=== PATIENT | male | born 1970 | race Caucasian/White ===

== ENCOUNTER → 2020-03-17 07:20 | Outpatient (CLI) | payer BC, SELFPAY ==
[2019-10-19 10:22] VITALS: BMI 40.8
--- NOTE | 2020-03-17 07:21 | ECHOCS_ITS ---
Reason For Study: HTN Procedure This was a 2D Doppler, Color Flow transthoracic echocardiogram. The study was technically difficult. Contrast injection was performed. Exam performed in department. Left Ventricle Mild concentric left ventricular hypertrophy. Mildly dilated left ventricle. The estimated ejection fraction is 65 %. Stage 1 diastolic dysfunction. No regional wall motion abnormalities noted. Right Ventricle Normal size and thickness. Normal systolic function. Atria Normal left atrium. Normal right atrium. Normal atrial septum. Mitral Valve The mitral valve is structurally normal. No prolapse or stenosis seen. Trivial eccentric mitral valve insufficiency. Tricuspid Valve Normal tricuspid valve. Unable to estimate RV systolic pressure due to insufficient tricuspid regurgitant envelope. Aortic Valve Trisinus/trileaflet aortic valve. Pulmonic Valve Normal pulmonic valve. Great Vessels Normal aortic root. Normal arch. Normal inferior vena cava. Inferior vena cava collapse with sniff. Pericardium/Pleural No pericardial effusion. Medication 22 gauge I.V. with prn adaptor inserted into right arm. Diluted definity 3ml given slow IV push to enhance endocardial definition. MMode/2D Measurements & Calculations LVIDd: 5.1 cm IVSd: 1.4 cm LA dimension: 4.8 cm LVIDs: 3.2 cm LVPWd: 1.4 cm FS: 36.0 % LAV(MOD-bp): 71.8 ml LA A4 area: 22.9 cm2 RA A4 area: 15.6 cm2 LAV(MOD-bp) Indexed: 31.0 ml/m2 LAV(MOD-sp2): 67.6 ml LAV(MOD-sp4): 76.8 ml Time Measurements MV dec time: 0.24 sec Doppler Measurements & Calculations MV E max nathan: 100.2 cm/sec Lat Peak E' Nathan: 9.7 cm/sec Med Peak E' Nathan: 7.7 cm/sec MV A max nathan: 83.0 cm/sec E/E' lat: 10.3 E/E' med: 13.0 MV E/A: 1.2 MV V2 max: 106.9 cm/sec MV P1/2t max nathan: 106.9 cm/sec Ao V2 max: 133.8 cm/sec MV max P.6 mmHg MV P1/2t: 123.1 msec Ao max P.2 mmHg MV V2 mean: 61.1 cm/sec MV dec slope: 254.2 cm/sec2 Ao V2 mean: 91.4 cm/sec MV mean P.7 mmHg Ao mean P.7 mmHg MV V2 VTI: 37.1 cm MVA(P1/2t): 1.8 cm2 Ao V2 VTI: 27.0 cm LV V1 max: 123.2 cm/sec MR max nathan: 520.3 cm/sec PA V2 max: 112.7 cm/sec LV V1 max P.1 mmHg MR max P.3 mmHg LV V1 mean P.1 mmHg MR mean nathan: 453.9 cm/sec LV V1 mean: 83.3 cm/sec MR mean P.3 mmHg LV V1 VTI: 25.8 cm MR VTI: 201.8 cm Interpretation Summary The estimated ejection fraction is 65 %. Stage 1 diastolic dysfunction. Mild concentric left ventricular hypertrophy. Mildly dilated left ventricle. Trivial eccentric mitral valve insufficiency. Unable to estimate RV systolic pressure due to insufficient tricuspid regurgitant envelope. The study was technically difficult. Contrast injection was performed. There is no comparison study available. Ordering Physician: Gamal Hnasen Referring Physician: MD Aram Harden Performed By: Timi Hanna RCS
[2020-03-17 08:32] LABS: AST(SGOT) 38 U/L (15-37); Alanine Aminotransfer ALT/SGPT 86 U/L (16-61); Albumin, Serum 3.7 g/dL (3.2-5.0); Alkaline Phosphatase 84 U/L (45-117); Cholesterol 168 mg/dL (200); Globulin 3.7 g/dL (2.2-4.2); High Density Lipoprotein 46 mg/dL; Protein, Total 7.4 g/dL (6.4-8.2); Triglycerides 110 mg/dL; Very Low Density Lipoprotein 22 mg/dL (5-40)
== END ==
PROVIDERS: PCP Preventive Medicine Occupational Medicine; Referring Provider Internal Medicine Cardiovascular Disease; Visit Provider Internal Medicine Cardiovascular Disease
DX: I10 Essential (primary) hypertension (principal); G47.33 Obstructive sleep apnea (adult) (pediatric); Z99.89 Dependence on other enabling machines and devices; Z82.49 Family history of ischemic heart disease and other diseases of the circulatory system
CPT/HCPCS: 36415; 80061; 80076; 93306; Q9957; A4216; C8929

== ENCOUNTER → 2020-03-24 09:03 | Outpatient (CLI) | payer BC, SELFPAY ==
[2019-10-19 10:22] VITALS: BMI 40.8
--- NOTE | 2020-03-24 09:06 | STEWCON_ITS ---
Reason For Study: HTN; Abnormal EKG Stress Results Protocol: Dobutamine Stress Echo With Definity Maximum Predicted HR: 172 bpm Target HR: 146 bpm % Maximum Predicted HR: 83 % Heart Stage Duration Rate BP Comment (mm:ss) (bpm) No Chest Pain; BP 151/100-Ntg 0.4 MG SL Given At 1005 Per Order; BP Baseline 69 143/52629/87 At 1015-NTG 0.4 MG SL Given Per Order; BP 143/84 at 1021; Diluted Definity 6 ML Given DSE 10 MCG 3:49 77 141/94No Chest Pain DSE 20 MCG 3:00 111 155/84No Chest Pain DSE 30 MCG 2:39 142 139/80No Chest Pain Recovery 91 162/81No Chest Pain Stress Duration: 9:28 mm:ss Maximum Stress HR: 142 bpm METS: 1 Baseline Echocardiogram Findings The estimated ejection fraction is 65 %. Stress Echo Wall motion Data Resting WM Intermediate WM Stress WM Resting Wall Motion Wall Motion Stress No regional wall motion No regional wall motion abnormalities noted. abnormalities noted. EKG Data The baseline ECG displays normal sinus rhythm. The patient was titrated from 10 mcg to a maximun of 30 mcg of dobutamine during the stress. The maximum heart rate attained was 142 beats per minute. This was 82% of maximum predicted heart rate. During dobutamine infusion, there were no ST or T wave changes noted to suggest ischemia. No clinical angina was noted. Interpretation Summary The estimated ejection fraction is 65 %. Normal, adequate, dobutamine echocardiogram. Negative for ischemia by EKG and echocardiographic criteria. No anginal symptoms noted. Rare PVC and ventricular couplet noted which is a nonspecific finding given dobutamine. Test terminated due to the attainment of target heart rate. Final LVEF is 75%. Appropriate blood pressure response to dobutamine. Decrease sensitivity due to poor echo windows requiring Definity agent. Patient tolerated procedure well. The study was technically difficult. Contrast injection was performed. Ordering Physician: Gamal Hansen Referring Physician: MD Aram Harden Performed By: Dagmar Wren RDCS
== END ==
PROVIDERS: PCP Preventive Medicine Occupational Medicine; Referring Provider Internal Medicine Cardiovascular Disease; Visit Provider Internal Medicine Cardiovascular Disease
DX: R94.31 Abnormal electrocardiogram [ECG] [EKG] (principal); I10 Essential (primary) hypertension; G47.33 Obstructive sleep apnea (adult) (pediatric); Z99.89 Dependence on other enabling machines and devices
CPT/HCPCS: 93017; 93350; J7040; Q9957; A4216; C8928